=== PATIENT | male | born 1950 | race Caucasian/White ===

== ENCOUNTER 2017-04-15 21:25 | Observation (INO) | payer OTHER ==
[~2017-04-15] VITALS: Ht 188 cm; Wt 88.0 kg
[~2017-04-15 21:25] MED LIST: ROSU10 PO
[2017-04-15 21:27] VITALS: BP 124/72; PULSE 63; RESP 16; TEMP 98.4; O2SAT 97
[2017-04-15] MEDS ORDERED: DAILTAB PO (22:41)
[2017-04-15] MEDS ORDERED: OMEGCAP PO (22:41)
[2017-04-15 23:18] LABS: AUTOMATED NEUTROPHIL # 3.2 TH/MM3 (1.8-7.7); BASOPHIL # 0.1 TH/MM3 (0-0.2); EOSINOPHIL # 0.3 TH/MM3 (0-0.4); EOSINOPHIL % 3.6 % (0.0-4.0); HEMATOCRIT 38.8 % (39.0-51.0); HEMOGLOBIN 13.6 GM/DL (13.0-17.0); LYMPH % 45.9 % (9.0-44.0); LYMPHOCYTE # 3.8 TH/MM3 (1.0-4.8); MEAN CELL VOLUME 93.9 FL (80.0-100.0); MEAN CORPUSCULAR HEMOGLOBIN 32.9 PG (27.0-34.0); MONO % 10.7 % (0.0-8.0); MONOCYTE # 0.9 TH/MM3 (0-0.9); NEUT % 38.8 % (16.0-70.0); PLATELET COUNT 195 TH/MM3 (150-450); RED BLOOD COUNT 4.13 MIL/MM3 (4.50-5.90); RED CELL DISTRIBUTION WIDTH 13.5 % (11.6-17.2); WHITE BLOOD COUNT 8.3 TH/MM3 (4.0-11.0)
[2017-04-15 23:39] LABS: BICARBONATE 29.5 MEQ/L (21.0-32.0); CALCIUM 9.3 MG/DL (8.5-10.1); CREATININE 1.21 MG/DL (0.60-1.30)
[2017-04-16 01:00] VITALS: BP 118/70; PULSE 60; RESP 16; O2SAT 100
--- NOTE | 2017-04-16 01:09 | RADRPT ---
EXAM DATE/TIME: 04/16/2017 00:06 [place] COMPARISON: No previous studies available for comparison. INDICATIONS : Pain. Penile pain. MEDICAL HISTORY : None. SURGICAL HISTORY : Tonsillectomy. Vasectomy. ENCOUNTER: Initial ACUITY: 1 day PAIN SCORE: 6/10 LOCATION: Penis. TECHNIQUE: Multiplanar, multisequence magnetic resonance imaging of the pelvis was performed. FINDINGS: There is subcutaneous soft tissue swelling and edema along the right side of the penile shaft. At the mid to distal right corpus cavernosum there is a focal area of increased signal at the lateral wall associated with mural thickening of the right lateral wall of the corpus cavernosum. This probably re presents a partial tear. No definite full-thickness tear is seen on this exam. The left corpus cavernosa and corpus spongiosum appear intact. Small bilateral hydroceles noted in th e scrotal sac. CONCLUSION: 1. Focal mural thickening and slightly increased T2 signal in the lateral wall of the right corpus ca vernosum associated with subcutaneous edema and soft tissue swelling. Findings probably represent at least a partial tear of the right corpus cavernosum. 2. Small bilateral hydroceles. Amos Vizcaino MD on April 16, 2017 at 1:01 Board Certified Radiologist. This report was verified electronically.
[2017-04-16] MEDS ORDERED: SODIUM CHLOR 0.9% 1000 ML INJ 1,000 ML IV SCH (02:22)
[2017-04-16] MEDS ORDERED: MORPHINE SULFATE 2 MG/ML INJ IV PUSH PRN (02:30)
[2017-04-16] MEDS ORDERED: ACETAMINOPHEN 325 MG TAB PO PRN (02:30)
[2017-04-16] MEDS ORDERED: BISACODYL 10 MG SUPP RECTAL PRN (02:30)
[2017-04-16] MEDS ORDERED: LACTULOSE SYRUP 20 GM/30 ML CUP PO PRN (02:30)
[2017-04-16] MEDS ORDERED: ONDANSETRON HCL 4 MG/2 ML VIAL IVP PRN (02:30)
[2017-04-16] MEDS ORDERED: SODIUM CHLORIDE 0.9% FLUSH 10 ML FLUSH IV FLUSH PRN (02:30)
[2017-04-16] MEDS ORDERED: SENNOSIDES 8.6 MG TAB PO PRN (02:30)
[2017-04-16] MEDS ORDERED: MAGNESIUM HYDROXIDE SUSP 30 ML CUP PO PRN (02:30)
[2017-04-16] MEDS ORDERED: NALOXONE HCL 0.4 MG/ML AMP IV PUSH PRN (02:30)
--- NOTE | 2017-04-16 02:33 | HHI.HP ---
[facility] Unknown Admission Diagnosis Diagnoses: Travel History International Travel<30 Days: No Contact w/Intl Traveler <30 Da: No Traveled to Known Affected Are: No History of Present Illness 66-year-old male with a past medical history significant for hyperlipidemia presents to the emergency department after sustaining penile trauma. The patient reports he was being intimate with his partner when he slipped from on top of her and jammed his penis into the bed. He reports instantaneous pain and swelling and immediately applied pressure. The patient denies any pain at this time. He denies any pain/swelling/tenderness in his scrotum. Vital signs : Temperature 98.4, pulse 63, respirations 16, BP 124/72, pulse ox 97% on room air. Review of Systems Except as stated in HPI: all other systems reviewed are Neg Denies fever or chills Denies blurry vision, otorrhea, rhinorrhea Denies sore throat and cough No chest pain, palpitations No shortness of breath or wheezing No abdominal pain Denies constipation/diarrhea/nausea/vomiting Denies muscle pain Denies focal weakness No rashes Past Family Social History Past Medical History Hyperlipidemia Past Surgical History Vasectomy Tonsillectomy Reported Medications Reported Meds & Active Scripts Active Reported [place]-3 Fish Oil/Vitamin (Fish Oil-Cholecalciferol) 1,000-1,000 Mg Cap 1 Cap PO DAILY Essential Daily (Multivit with Calcium,Iron,Min) 18 Mg-0.4 Mg-450 Mg Tablet 1 Tab PO DAILY Crestor (Rosuvastatin Calcium) 10 Mg Tab 10 Mg PO DAILY Allergies: Coded Allergies: Penicillins (Verified Allergy, Unknown, 04/15/17) Family History Negative for CAD/DM Social History Has one cigar approximately 3-4 times weekly. One alcoholic beverage daily. Denies illicit drugs. Physical Exam Vital Signs Vital Signs Date Time Temp Pulse Resp B/P (MAP) Pulse Ox O2 Delivery O2 Flow Rate FiO2 04/15/17 21:27 98.4 63 16 124/72 (89) 97 Room Air Physical Exam GENERAL: This is a well-nourished, well-developed patient, in no apparent distress. SKIN: No rashes, ecchymoses or lesions. Cool and dry. HEAD: Atraumatic. Normocephalic. No temporal or scalp tenderness. EYES: Pupils equal round and reactive. Extraocular motions intact. No scleral icterus. No injection or drainage. ENT: Nose without bleeding, purulent drainage or septal hematoma. Throat without erythema, tonsillar hypertrophy or exudate. Uvula midline. Airway patent. NECK: Trachea midline. No JVD or lymphadenopathy. Supple, nontender, no meningeal signs. CARDIOVASCULAR: Regular rate and rhythm without murmurs, gallops, or rubs. RESPIRATORY: Clear to auscultation. Breath sounds equal bilaterally. No wheezes , rales, or rhonchi. GASTROINTESTINAL: Abdomen soft, non-tender, nondistended. No hepato-splenomegaly , or palpable masses. No guarding. : Large area of ecchymoses on the right side of the penile shaft extending from the base to the glans. No scrotal hematoma/swelling/pain. MUSCULOSKELETAL: Extremities without clubbing, cyanosis, or edema. No joint tenderness, effusion, or edema noted. No calf tenderness. NEUROLOGICAL: Awake and alert. Cranial nerves II through XII intact. Motor and sensory grossly within normal limits. Normal speech. Laboratory Laboratory Tests Test 04/15/17 23:00 White Blood Count 8.3 Red Blood Count 4.13 Hemoglobin 13.6 Hematocrit 38.8 Mean Corpuscular Volume 93.9 Mean Corpuscular Hemoglobin 32.9 Mean Corpuscular Hemoglobin Concent 35.0 Red Cell Distribution Width 13.5 Platelet Count 195 Mean Platelet Volume 7.0 Neutrophils (%) (Auto) 38.8 Lymphocytes (%) (Auto) 45.9 Monocytes (%) (Auto) 10.7 Eosinophils (%) (Auto) 3.6 Basophils (%) (Auto) 1.0 Neutrophils # (Auto) 3.2 Lymphocytes # (Auto) 3.8 Monocytes # (Auto) 0.9 Eosinophils # (Auto) 0.3 Basophils # (Auto) 0.1 CBC Comment DIFF FINAL Differential Comment Blood Urea Nitrogen 29 Creatinine 1.21 Random Glucose 107 Calcium Level 9.3 Sodium Level 138 Potassium Level 3.8 Chloride Level 104 Carbon Dioxide Level 29.5 Anion Gap 5 Estimat Glomerular Filtration Rate 60 Result Diagram: 04/15/17 2300 04/15/172299 Caprini VTE Risk Assessment Caprini VTE Risk Assessment: Mod/High Risk (score >= 2) Caprini Risk Assessment Model Point Value = 1 Point Value = 2 Point Value = 3 Point Value = 5 Age 41-60 Minor surgery BMI > 25 kg/m2 Swollen legs Varicose veins or History of unexplained or recurrent spontaneous Oral contraceptives or hormone replacement Sepsis (< 1 month) Serious lung disease, including pneumonia (< 1 month) Abnormal pulmonary function Acute myocardial infarction Congestive heart failure (< 1 month) History of inflammatory bowel disease Medical patient at bed rest Age 61-74 Arthroscopic surgery Major open surgery (> 45 min) Laparoscopic surgery (> 45 min) Malignancy Confined to bed (> 72 hours) Immobilizing plaster cast Central venous access Age >= 75 History of VTE Family history of VTE Factor V Leiden Prothrombin [id number] Lupus anticoagulant Anticardiolipin antibodies Elevated serum homocysteine Heparin-induced thrombocytopenia Other congenital or acquired thrombophilia Stroke (< 1 month) Elective arthroplasty Hip, pelvis, or leg fracture Acute spinal cord injury (< 1 month) Prophylaxis Regimen Total Risk Factor Score Risk Level Prophylaxis Regimen 0-1 Low Early ambulation 2 Moderate Order ONE of the following: *Sequential Compression Device (SCD) *Heparin 5000 units SQ BID 3-4 Higher Order ONE of the following medications: *Heparin 5000 units SQ TID *Enoxaparin/Lovenox 40 mg SQ daily (WT < 150 kg, CrCl > 30 mL/min) *Enoxaparin/Lovenox 30 mg SQ daily (WT < 150 kg, CrCl > 10-29 mL/min) *Enoxaparin/Lovenox 30 mg SQ BID (WT < 150 kg, CrCl > 30 mL/min) AND/OR *Sequential Compression Device (SCD) 5 or more Highest Order ONE of the following medications: *Heparin 5000 units SQ TID (Preferred with Epidurals) *Enoxaparin/Lovenox 40 mg SQ daily (WT < 150 kg, CrCl > 30 mL/min) *Enoxaparin/Lovenox 30 mg SQ daily (WT < 150 kg, CrCl > 10-29 mL/min) *Enoxaparin/Lovenox 30 mg SQ BID (WT < 150 kg, CrCl > 30 mL/min) AND *Sequential Compression Device (SCD) Assessment and Plan Assessment and Plan Assessment/plan: 1. Tear of the right corpus cavernosum MRI of the pelvis significant for focal mural thickening and slightly increased T2 signal in the lateral wall of the right corpus cavernosum associated with subcutaneous edema and soft tissue swelling. Findings probably represent at least a partial tear of the right corpus cavernosum. Neurology consulted, appreciate recommendations Nothing by mouth Morphine for pain 2. Hyperlipidemia Continue home statin FEN Nothing by mouth Electrolytes: Monitor and replete when necessary NS at 100 cc/hour Holding pharmacologic anticoagulation in anticipation of operative intervention Luisa Vidales MD Apr 16, 2017 02:33
--- NOTE | 2017-04-16 03:56 | PD ---
HPI . complaint Chief Complaint: Complaint Time Seen by Provider: 22:41 Travel History International Travel<30 days: No Contact w/Intl Traveler<30days: No Traveled to known affect area: No History of Present Illness HPI 66-year-old male transferred from [facility] emergency department for evaluation of possible fractured penis. Patient was having sexual intercourse, and had a severe sudden onset pain with deformity of penis, pending midshaft towards the left with development acutely of right sided shaft ecchymosis. [facility] Past Medical History Narrative Medical Past medical history reviewed. Hypercholesterolemia noted High Cholesterol: Yes Diminished Hearing: No Tetanus Vaccination: < 5 Years Influenza Vaccination: No Past Surgical History Genitourinary Surgery: Yes (vasectomy) Tonsillectomy: Yes Social History Alcohol Use: Yes (occasional) Tobacco Use: Yes (1 cigar daily) Substance Use: No Allergies-Medications (Allergen,Severity, Reaction): Coded Allergies: Penicillins (Verified Allergy, Unknown, 04/15/17) Reported Meds & Prescriptions Reported Meds & Active Scripts Active Reported [place]-3 Fish Oil/Vitamin (Fish Oil-Cholecalciferol) 1,000-1,000 Mg Cap 1 Cap PO DAILY Essential Daily (Multivit with Calcium,Iron,Min) 18 Mg-0.4 Mg-450 Mg Tablet 1 Tab PO DAILY Crestor (Rosuvastatin Calcium) 10 Mg Tab 10 Mg PO DAILY Narrative Medication Allergies and medicines reviewed Review of Systems Except as stated in HPI: all other systems reviewed are Neg General / Constitutional: No: Fever Eyes: No: Visual changes HENT: No: Headaches Cardiovascular: No: Chest Pain or Discomfort Respiratory: No: Shortness of Breath Gastrointestinal: No: Abdominal Pain Genitourinary: No: Dysuria Musculoskeletal: No: Pain Skin: No Rash Neurologic: No: Weakness Psychiatric: No: Depression Endocrine: No: Polydipsia Hematologic/Lymphatic: No: Easy Bruising Physical Exam Narrative GENERAL: Awake alert oriented 3 no acute distress SKIN: Warm and dry. Color is normal no diaphoresis cyanosis or pallor HEAD: Atraumatic. Normocephalic. EYES: Pupils equal and round. No scleral icterus. No injection or drainage. ENT: No nasal bleeding or discharge. Mucous membranes pink and moist. NECK: Trachea midline. No JVD. CARDIOVASCULAR: Regular rate and rhythm. RESPIRATORY: No accessory muscle use. Clear to auscultation. Breath sounds equal bilaterally. GASTROINTESTINAL: Abdomen soft, non-tender, nondistended. Hepatic and splenic margins not palpable. Genitourinary exam: Patient has tenderness of the penis with right sided midshaft ecchymosis swelling, with deviation of the distal aspect of penis towards the left. MUSCULOSKELETAL: Extremities without clubbing, cyanosis, or edema. No obvious deformities. NEUROLOGICAL: Awake and alert. No obvious cranial nerve deficits. Motor grossly within normal limits. Five out of 5 muscle strength in the arms and legs. Normal speech. PSYCHIATRIC: Appropriate mood and affect; insight and judgment normal. Data Data Last Documented VS Vital Signs Date Time Temp Pulse Resp B/P (MAP) Pulse Ox O2 Delivery O2 Flow Rate FiO2 04/15/17 21:27 98.4 63 16 124/72 (89) 97 Room Air Orders Orders Complete Blood Count With Diff (04/15/17 22:52) Basic Metabolic Panel (Bmp) (04/15/17 22:52) Iv Access Insert/Monitor (04/15/17 22:54) Mri Pelvis W/O Contrast (04/16/17 ) Place In Observation (04/16/17 ) Vital Signs (Adult) Q4H (04/16/17 02:22) Activity Oob Ad Sona (04/16/17 02:22) Diet Npo (04/16/17 Breakfast) Sodium Chlor 0.9% 1000 Ml Inj (Ns 1000 M (04/16/17 02:22) Sodium Chloride 0.9% Flush (Ns Flush) (04/16/17 02:30) Sodium Chloride 0.9% Flush (Ns Flush) (04/16/17 09:00) Acetaminophen (Tylenol) (04/16/17 02:30) Ondansetron Inj (Zofran Inj) (04/16/17 02:30) Basic Metabolic Panel (Bmp) (04/17/17 06:00) Complete Blood Count With Diff (04/17/17 06:00) Naloxone Inj (Narcan Inj) (04/16/17 02:30) Docusate Sodium-Senna (Yessica-Colace) (04/16/17 09:00) Magnesium Hydroxide Liq (Milk Of Magnesi (04/16/17 02:30) Sennosides (Senokot) (04/16/17 02:30) Bisacodyl Supp (Dulcolax Supp) (04/16/17 02:30) Lactulose Liq (Lactulose Liq) (04/16/17 02:30) Consult Urology (04/16/17 ) Morphine Inj (Morphine Inj) (04/16/17 02:30) Atorvastatin (Lipitor) (04/16/17 09:00) (Hub Use Only)Inp Phy Cons/Ref (04/16/17 ) Labs Laboratory Tests Test 04/15/17 23:00 White Blood Count 8.3 TH/MM3 Red Blood Count 4.13 MIL/MM3 Hemoglobin 13.6 GM/DL Hematocrit 38.8 % Mean Corpuscular Volume 93.9 FL Mean Corpuscular Hemoglobin 32.9 PG Mean Corpuscular Hemoglobin Concent 35.0 % Red Cell Distribution Width 13.5 % Platelet Count 195 TH/MM3 Mean Platelet Volume 7.0 FL Neutrophils (%) (Auto) 38.8 % Lymphocytes (%) (Auto) 45.9 % Monocytes (%) (Auto) 10.7 % Eosinophils (%) (Auto) 3.6 % Basophils (%) (Auto) 1.0 % Neutrophils # (Auto) 3.2 TH/MM3 Lymphocytes # (Auto) 3.8 TH/MM3 Monocytes # (Auto) 0.9 TH/MM3 Eosinophils # (Auto) 0.3 TH/MM3 Basophils # (Auto) 0.1 TH/MM3 CBC Comment DIFF FINAL Differential Comment Blood Urea Nitrogen 29 MG/DL Creatinine 1.21 MG/DL Random Glucose 107 MG/DL Calcium Level 9.3 MG/DL Sodium Level 138 MEQ/L Potassium Level 3.8 MEQ/L Chloride Level 104 MEQ/L Carbon Dioxide Level 29.5 MEQ/L Anion Gap 5 MEQ/L Estimat Glomerular Filtration Rate 60 ML/MIN [facility] Medical Decision Making Medical Screen Exam Complete: Yes Emergency Medical Condition: Yes Medical Record Reviewed: Yes Differential Diagnosis Penile fracture, superficial hematoma Narrative Course Case discussed with urology Dr. carlton. Care plan developed. MRI performed of pelvis/penis: Possible cavernous injury on right with small hematoma Patient be admitted to hospitalist service, urology consult for possible surgical repair of penile shaft/cavernous injury. Diagnosis Primary Impression: Fracture of corpus cavernosum penis Qualified Codes: S39.840A - Fracture of corpus cavernosum penis, initial encounter Admitting Information Admitting Physician Requests: Observation Taiwo Delgado MD Apr 16, 2017 03:56
[2017-04-16 04:00] VITALS: BP 119/72; PULSE 58; RESP 16; O2SAT 100
--- NOTE | 2017-04-16 08:03 | PD.CONS ---
[facility] Service Urology Consult Requested By Reason for Consult penile swelling, possible penile fracture Primary Care Physician Unknown Diagnosis: History of Present Illness 66 yo male originally presented to [facility] with complaints of penile pain, swelling, ecchymoses after having vigorous sexual intercourse with his partner. He slipped out during intercourse and jammed his penis into the bed. He heard a "pop" and immediately loss his erection. It began to swell and become discolored. He went to [facility] where he was transferred to [facility] for Urology evaluation. He underwent a MRI Pelvis which showed a possible small tear in his right corpora. Currently, he is pain free. He has voided several times since the incident. Denies hematuria, fevers, chills, nausea. Denies prior episodes. He denies erectile dysfunction. He does not take blood thinners. Review of Systems Except as stated in HPI: all other systems reviewed are Neg Past Family Social History Past Medical History Hyperlipidemia Past Surgical History Vasectomy, tonsillectomy Reported Medications Crestor, Fish Oil Allergies: Coded Allergies: Penicillins (Verified Allergy, Unknown, 04/15/17) Family History Denies urolithiasis, malignancies Social History smokes a cigar, occasional alcohol, illicit drugs; Physical Exam Vital Signs Date Time Temp Pulse Resp B/P (MAP) Pulse Ox O2 Delivery O2 Flow Rate FiO2 04/16/17 04:00 58 16 119/72 (88) 100 Room Air 04/16/17 01:00 60 16 118/70 (86) 100 Room Air 04/15/17 21:27 98.4 63 16 124/72 (89) 97 Room Air Physical Exam GENERAL: This is a well-nourished, well-developed patient, in no apparent distress. SKIN: No rashes, ecchymoses or lesions. Cool and dry. HEAD: Atraumatic. Normocephalic. No temporal or scalp tenderness. EYES: Pupils equal round and reactive. Extraocular motions intact. No scleral icterus. No injection or drainage. ENT: Nose without bleeding, purulent drainage or septal hematoma. Throat without erythema, tonsillar hypertrophy or exudate. Uvula midline. Airway patent. NECK: Trachea midline. No JVD or lymphadenopathy. Supple, nontender, no meningeal signs. CARDIOVASCULAR: Regular rate and rhythm without murmurs, gallops, or rubs. RESPIRATORY: Clear to auscultation. Breath sounds equal bilaterally. No wheezes , rales, or rhonchi. GASTROINTESTINAL: Abdomen soft, non-tender, nondistended. No hepato-splenomegaly , or palpable masses. No guarding. GENITOURINARY: phallus uncircumcised, mildly swollen with discoloration of right base extending to mid shaft, non tender; testes without mass MUSCULOSKELETAL: Extremities without clubbing, cyanosis, or edema. No joint tenderness, effusion, or edema noted. No calf tenderness. Negative Homans sign bilaterally. NEUROLOGICAL: Awake and alert. Cranial nerves II through XII intact. Motor and sensory grossly within normal limits. Five out of 5 muscle strength in all muscle groups. Normal speech. Lab results reviewed: Yes Laboratory Tests Test 04/15/17 23:00 White Blood Count 8.3 Red Blood Count 4.13 Hemoglobin 13.6 Hematocrit 38.8 Mean Corpuscular Volume 93.9 Mean Corpuscular Hemoglobin 32.9 Mean Corpuscular Hemoglobin Concent 35.0 Red Cell Distribution Width 13.5 Platelet Count 195 Mean Platelet Volume 7.0 Neutrophils (%) (Auto) 38.8 Lymphocytes (%) (Auto) 45.9 Monocytes (%) (Auto) 10.7 Eosinophils (%) (Auto) 3.6 Basophils (%) (Auto) 1.0 Neutrophils # (Auto) 3.2 Lymphocytes # (Auto) 3.8 Monocytes # (Auto) 0.9 Eosinophils # (Auto) 0.3 Basophils # (Auto) 0.1 CBC Comment DIFF FINAL Differential Comment Blood Urea Nitrogen 29 Creatinine 1.21 Random Glucose 107 Calcium Level 9.3 Sodium Level 138 Potassium Level 3.8 Chloride Level 104 Carbon Dioxide Level 29.5 Anion Gap 5 Estimat Glomerular Filtration Rate 60 Result Diagram: 04/15/17229904/15/172299 Personally reviewed images: Yes (MRI pelvis: possible small tear in right corpora, edematous) Imaging Last Impressions Pelvis MRI 04/16/17 0000 Signed Impressions: Service Date/Time: Sunday, April 16, 2017 00:06 - CONCLUSION: 1. Focal mural thickening and slightly increased T2 signal in the lateral wall of the right corpus cavernosum associated with subcutaneous edema and soft tissue swelling. Findings probably represent at least a partial tear of the right corpus cavernosum. 2. Small bilateral hydroceles. 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 I discussed the risks, benefits , alternatives of the procedure with him, including pain, bleeding, infection, anesthetic risks, worsening swelling, sexual inactivity for 6 weeks. We also discussed the potential halfway side effects, such as ED, curvature, scar tissue formation. -We also discussed conservative management with him. I explained to him that without any intervention, risk of ED, penile curvature, scar tissue formation is much higher than operative intervention. I explained to him that repairing a penile fracture is very successful -However, after to discussing with his , he opted conservative management and hold off on surgery even though he understands the risks. -Ok to d/c home -F/U in 2-3 weeks as outpatient. I spent more than 45 minutes with him and greater than 50% fo the time was face to face counseling the patient and coordinating a plan of care. Mele Steven MD Apr 16, 2017 08:03
--- NOTE | 2017-04-16 08:22 | HHI.DCPOC ---
Discharge Care Plan Diagnosis: (1) Fracture of corpus cavernosum penis Goals to Promote Your Health * To prevent worsening of your condition and complications * To maintain your health at the optimal level Directions to Meet Your Goals Take your medications as prescribed Follow your dietary instruction Follow activity as directed Keep your appointments as scheduled Take your immunizations and boosters as scheduled If your symptoms worsen call your PCP, if no PCP go to Urgent Care Center or Emergency Room Smoking is Dangerous to Your Health. Avoid second hand smoke Call the 24-hour hour crisis hotline for domestic abuse at Kaila Eldridge PA-C Apr 16, 2017 8:22 am
--- NOTE | 2017-04-16 08:22 | HHI.PR ---
Subjective Remarks Follow up for penile fracture. The patient reports continued swelling and bruising of the penis with tenderness to palpation. Denies fevers/chills. He had discussion with urologist Dr. Steven, and the patient has declined surgery. He wants to go home. Discussed using ice packs and scrotal elevation for relief. Objective Vitals Vital Signs Date Time Temp Pulse Resp B/P (MAP) Pulse Ox O2 Delivery O2 Flow Rate FiO2 04/16/17 04:00 58 16 119/72 (88) 100 Room Air 04/16/17 01:00 60 16 118/70 (86) 100 Room Air 04/15/17 21:27 98.4 63 16 124/72 (89) 97 Room Air Result Diagram: 04/15/17 2300 04/15/17 2300 Imaging Last Impressions Pelvis MRI 04/16/17 0000 Signed Impressions: Service Date/Time: Sunday, April 16, 2017 00:06 - CONCLUSION: 1. Focal mural thickening and slightly increased T2 signal in the lateral wall of the right corpus cavernosum associated with subcutaneous edema and soft tissue swelling. Findings probably represent at least a partial tear of the right corpus cavernosum. 2. Small bilateral hydroceles. Amos Vizcaino MD Objective Remarks GENERAL: Well-nourished, well-developed male patient in NAD. SKIN: Warm and dry. No rash. HEENT: Normocephalic. Atraumatic.Pupils equal and round. Mucous membranes pink and moist. CARDIOVASCULAR: Regular rate and rhythm. S1, S2 noted. No murmur appreciated. RESPIRATORY: No accessory muscle use. Clear to auscultation. Breath sounds equal bilaterally. GASTROINTESTINAL: Abdomen soft, non-tender, nondistended. Normoactive bowel sounds x4. GENITOURINARY: Diffuse ecchymosis of penile shaft from base to the glans, with mild TTP. No scrotal edema/ecchymosis/tenderness. MUSCULOSKELETAL: No obvious deformities. Extremities without clubbing, cyanosis , or edema. NEUROLOGICAL: Awake and alert. No obvious cranial nerve deficits. Motor grossly within normal limits. Normal speech. PSYCHIATRIC: Appropriate mood and affect; insight and judgment normal. Medications and IVs Current Medications Medications (Trade) Dose Ordered Sig/Trip Route Start Time Stop Time Status Last Admin Sodium Chloride 1,000 ml @ 100 mls/hr Q10H IV 04/16/17 02:22 2/9/18 04:41 (NS Flush) 2 ml UNSCH PRN IV FLUSH 04/16/17 02:30 (NS Flush) 2 ml BID IV FLUSH 04/16/17 09:00 (Tylenol) 650 mg Q4H PRN PO 04/16/17 02:30 (Zofran Inj) 4 mg Q6H PRN IVP 04/16/17 02:30 (Narcan Inj) 0.4 mg UNSCH PRN IV PUSH 04/16/17 02:30 (Yessica-Colace) 1 tab BID PO 04/16/17 09:00 (Milk Of Magnesia Liq) 30 ml Q12H PRN PO 04/16/17 02:30 (Senokot) 17.2 mg Q12H PRN PO 04/16/17 02:30 (Dulcolax Supp) 10 mg DAILY PRN RECTAL 04/16/17 02:30 (Lactulose Liq) 30 ml DAILY PRN PO 04/16/17 02:30 (Morphine Inj) 2 mg Q3H PRN IV PUSH 04/16/17 02:30 (Lipitor) 10 mg DAILY PO 04/16/17 09:00 A/P Assessment and Plan 66-year-old male with a past medical history significant for hyperlipidemia presents to the emergency department after sustaining penile trauma. Penile Fracture, Tear of the right corpus cavernosum: MRI pelvis significant for focal mural thickening and slightly increased T2 signal in the lateral wall of the right corpus cavernosum associated with subcutaneous edema and soft tissue swelling; Findings probably represent at least a partial tear of the right corpus cavernosum. -Urology consulted, patient seen by Dr. Steven, surgery was recommended however patient declined -Discussed with Dr. Steven, cleared patient for discharge, recommends outpatient f/up in 2-3 weeks -Recommended ice packs and scrotal elevation for relief Hyperlipidemia: chronic, stable -Continue home statin Discharge Planning Discharge patient to home Condition on discharge: Stable Regular Diet as tolerated Ad Sona activity Rx written: none Follow-up with primary care physician within 1 week Follow-up with urologist Dr. Steven in 2-3 weeks Kaila Eldridge PA-C Apr 16, 2017 8:22 am
[2017-04-16] MEDS ORDERED: SODIUM CHLORIDE 0.9% FLUSH 10 ML FLUSH IV FLUSH SCH (09:00)
[2017-04-16] MEDS ORDERED: ATORVASTATIN 20 MG TAB PO SCH (09:00)
[2017-04-16] MEDS ORDERED: DOCUSATE SODIUM 50 MG/SENNA 8.6 MG TAB PO SCH (09:00)
--- NOTE | 2017-04-16 14:28 | EKG ---
Date Performed: 04/16/2017 Time Performed: 06:07:27 PTAGE: 66 years EKG: Sinus rhythm WITH FIRST DEGREE AV BLOCK MODERATE INTRAVENTRICULAR CONDUCTION DELAY ABNORMAL ECG NO PREVIOUS TRACING DOCTOR: Eva Gordon Interpretating Date/Time 04/16/2017 14:26:13
== END 2017-04-16 11:38 | disposition home or self-care (01) ==
LOC: NEPE 21:25 → NEDA 04-16 04:47 → NEPHCDU 04-16 06:16
PROVIDERS: ADMIT Hospitalist; ATTEND Hospitalist
DX: S39.840A Fracture of corpus cavernosum penis, initial encounter (principal); E78.5 Hyperlipidemia, unspecified; E78.00 Pure hypercholesterolemia, unspecified; I44.0 Atrioventricular block, first degree; R94.31 Abnormal electrocardiogram [ECG] [EKG]; F17.290 Nicotine dependence, other tobacco product, uncomplicated; W22.09XA Striking against other stationary object, initial encounter
CPT/HCPCS: 72195; 80048; 85025; 93005; 96360; 96361; 99285; G0378; J7030